=== PATIENT | male | born 1960 | race Two or more races ===

== ENCOUNTER 2017-02-18 02:06 | Emergency (ER) | payer OTHER ==
--- NOTE | 2017-02-18 03:26 | EDPHY ---
H & P Stated Complaint: pt was in [place] last week, c/o sore throat, headache x3 days Time Seen by Provider: 02/18/17 03:09 HPI/ROS: Chief Complaint: Sore throat, nasal congestion HPI: 56-year-old male states that he was in [place] last week. He returned to the [place] ago. Patient states that on his way home he knows he developed some nasal congestion and a sore throat. This has persisted for the last few days but does seem to be improving. No fevers or chills. No headache. No ear pain. No neck pain or stiffness. No nausea or vomiting. No chest pain or shortness of breath. No cough. No abdominal pain. No skin rash. ROS: 10 point Review of Systems is negative except as noted in the HPI. PMH: Denies Social History: No smoking, no alcohol, no recreational drug use Family History: non-contributory Physical Exam: Gen: Awake, Alert, No Distress HEENT: Ears: Bilateral TMs are normal Nose: no rhinorrhea Eyes: PERRLA, EOMI Mouth: Moist mucosa Neck: Supple, no JVD Chest: nontender, lungs clear to auscultation Heart: S1, S2 normal, no murmur Abd: Soft, non-tender, no guarding Back: no CVA tenderness, no midline tenderness Ext: no edema, non-tender Skin: no rash Neuro: CN II-XII intact, Sensation grossly intact, Strength 5/5 in bilateral upper and lower extremities - Personal History Current Tetanus Diphtheria and Acellular Pertussis (TDAP): Unsure - Medical/Surgical History Hx Asthma: No Hx Chronic Respiratory Disease: No Hx Diabetes: No Hx Cardiac Disease: No Hx Renal Disease: No Hx Cirrhosis: No Hx Alcoholism: No Hx HIV/AIDS: No Hx Splenectomy or Spleen Trauma: No Other PMH: surgery: shoulder, hernia repair - Social History Smoking Status: Former smoker Constitutional: Initial Vital Signs Temperature (C) 37 C 02/18/17 02:12 Heart Rate 80 02/18/17 02:12 Respiratory Rate 18 02/18/17 02:12 Blood Pressure 165/100 H 02/18/17 02:12 O2 Sat (%) 98 02/18/17 02:12 O2 Delivery Mode Room Air Allergies/Adverse Reactions: No Known Allergies Allergy (Unverified 02/18/17 02:12) Home Medications: Medication Instructions Recorded NK [No Known Home Meds] 02/18/17 Medical Decision Making ED Course/Re-evaluation: 48-year-old male with viral URI type symptoms. He is very well-appearing. Lungs are clear. Vital signs are normal. He has a very benign exam. Patient has been reassured that symptoms are consistent with a viral process. He will follow up with primary care physician for any concerns. - Data Points Laboratory Results: 02/18/17 02/18/17 Unknown 03:00 Group A Strep Screen NEGATIVE (NEGATIVE) Group A Strep DNA Pending Departure - Departure Disposition: Home, Routine, Self-Care Clinical Impression: Viral upper respiratory illness Condition: Good Instructions: Upper Respiratory Infection (ED) Additional Instructions: You may alternate ibuprofen with acetaminophen every 4 hours as needed for fevers, chills, aches or pains. You may take [id number] cold medicines as needed for symptoms. Make sure to wash her hands with soap and water or use hand operating system designer frequently. Follow up with primary care physician in 3-4 days if symptoms are not improving. Referrals: NONE *PRIMARY CARE P,. [Primary Care Provider] - As per Instructions
[2017-02-18 03:45] VITALS: BP 139/102; PULSE 69; RESP 20; TEMP 98.2; O2SAT 94
== END 2017-02-18 03:44 | disposition home or self-care (01) ==
DX: J06.9 Acute upper respiratory infection, unspecified (principal); Z87.891 Personal history of nicotine dependence